=== PATIENT | female | born 1990 | race Caucasian/White ===

== ENCOUNTER 2023-02-15 10:13 | Emergency (ER) | payer BC ==
[2023-02-15] MEDS ORDERED: Ketorolac 30 MG/ML SDV IM ONE (12:24)
== END 2023-02-15 14:17 | disposition home or self-care (01) ==
LOC: JP.ED 10:13
DX: M79.671 Pain in right foot (principal); Z88.0 Allergy status to penicillin; Z91.018 Allergy to other foods; Z91.030 Bee allergy status; Z88.1 Allergy status to other antibiotic agents; Z88.8 Allergy status to other drugs, medicaments and biological substances; Z88.5 Allergy status to narcotic agent; Z88.2 Allergy status to sulfonamides; Z87.891 Personal history of nicotine dependence
CPT/HCPCS: 73630; 96372; 99283; J1885